=== PATIENT | female | born 1965 | race Caucasian/White ===

== ENCOUNTER 2016-05-15 18:07 | Emergency (ER) | payer OTHER, BC ==
[2016-05-15 18:36] VITALS: BP 129/39; PULSE 77; TEMP 98.2; BMI 35.9
--- NOTE | 2016-05-15 19:01 | PDOC ---
History of Present Illness <Kristopher Harper - Last Filed: 05/15/16 18:59> - History of Present Illness Initial Comments: 05/15/16 19:04 The patient is a 50 year old female with a past medical hx of HTN who presents to the ED complaining of a cough for two months. She reports she has associated chills, night sweats, and chest tightness. The patient reports she saw her PCP a few weeks ago for cold symptoms and was given antibiotics. The patient notes she finished the antibiotics and had no relief of symptoms. The patient notes she does have some relief immediately after a nebulizer treatment. The patient denies SOB, palpitations, fever The patient denies nausea, vomiting, diarrhea Surgical: Appendectomy, cholecystectomy <Nory Singh - Last Filed: 05/15/16 19:08> - General Chief Complaint: Cold Symptoms Stated Complaint: COUGH X 2 MONTHS Time Seen by Provider: 05/15/16 18:58 Past History - Past Medical History HTN: Yes - Surgical History Abdominal Surgery: Yes (HERNIA) Appendectomy: Yes Cholecystectomy: Yes - Immunization History Td Vaccination: Yes Immunization Up to Date: Yes - Psycho/Social/Smoking Cessation Hx Anxiety: No Suicidal Ideation: No Smoking Status: No Smoking History: Never smoked Have you smoked in the past 12 months: No Number of Cigarettes Smoked Daily: 0 Information on smoking cessation initiated: No Hx Alcohol Use: No Drug/Substance Use Hx: No Substance Use Type: None <Kristopher Harper - Last Filed: 05/15/16 18:59> <Nory Singh - Last Filed: 05/15/16 19:08> - Past Medical History Allergies/Adverse Reactions: Allergies Allergy/AdvReac Type Severity Reaction Status Date / Time No Known Allergies Allergy Verified 05/15/16 18:08 Home Medications: Ambulatory Orders Albuterol 0.083% Nebulizer Adilene [Ventolin 0.083% Nebulizer Soln -] 1 amp NEB QID PRN #20 amp 05/15/16 Nebivolol HCl [Bystolic] 5 mg PO Q2D 05/15/16 Review of Systems - Review of Systems Able to Perform ROS?: Yes Comments:: 05/15/16 19:07 GENERAL/CONSTITUTIONAL: +Chills, night sweats No: fever. CARDIOVASCULAR:+Chest tightness No: chest pain, palpitations RESPIRATORY: +Cough No: shortness of breath GASTROINTESTINAL: No: nausea, vomiting, diarrhea <Nory Singh - Last Filed: 05/15/16 19:08> *Physical Exam - Vital Signs Last Vital Signs Temp Pulse Resp BP Pulse Ox 98.2 F 77 16 129/39 99 05/15/16 18:07 05/15/16 18:07 05/15/16 18:07 05/15/16 18:07 05/15/16 18:07 - Physical Exam General Appearance: Yes: Nourished, Appropriately Dressed. No: Apparent Distress HEENT: positive: Normal ENT Inspection Neck: positive: Supple. negative: Tender Respiratory/Chest: positive: Lungs Clear, Normal Breath Sounds. negative: Chest Tender, Respiratory Distress Cardiovascular: positive: Regular Rhythm, Regular Rate Integumentary: positive: Normal Color Neurologic: positive: Fully Oriented, Alert, Normal Mood/Affect, Normal Response , Motor Strength 5/5 <Kristopher Harper - Last Filed: 05/15/16 18:59> - Vital Signs Last Vital Signs Temp Pulse Resp BP Pulse Ox 98.2 F 77 16 129/39 99 05/15/16 18:07 05/15/16 18:07 05/15/16 18:07 05/15/16 18:07 05/15/16 18:07 <Nory Singh - Last Filed: 05/15/16 19:08> ED Treatment Course - RADIOLOGY Radiology Studies Ordered: Category Date Time Status CHEST PA & LAT [RAD] Stat Radiology 05/15/16 18:58 Ordered <Kristopher Harper - Last Filed: 05/15/16 18:59> *DC/Admit/Observation/Transfer <Kristopher Harper - Last Filed: 05/15/16 18:59> - Attestations Scribe Attestion: 05/15/16 19:04 Documentation prepared by Nory Singh, acting as medical technologist generalist for Kristopher Harper MD/DO. <Nory Singh - Last Filed: 05/15/16 19:08> Diagnosis at time of Disposition: Reactive airway disease that is not asthma - Discharge Dispostion Disposition: HOME Condition at time of disposition: Good - Prescriptions Prescriptions: Albuterol 0.083% Nebulizer Adilene [Ventolin 0.083% Nebulizer Soln -] 1 amp NEB QID PRN #20 amp PRN Reason: Cough - Patient Instructions Additional Instructions: CONTINUE NEBULIZER ZYRTEC ONCE A DAY CALL YOUR DOCTOR TOMORROW RETURN TO ER IF WORSENING OR NEW SYMPTOMS
== END 2016-05-15 19:34 | disposition home or self-care (01) ==
LOC: FER 18:07
DX: J98.9 Respiratory disorder, unspecified (principal); I10 Essential (primary) hypertension
CPT/HCPCS: 71020-TC; 99282-25

== ENCOUNTER 2016-05-27 21:54 | Emergency (ER) | payer OTHER, BC ==
[2016-05-27 22:09] VITALS: BP 140/74; PULSE 70; TEMP 97.4; BMI 37.3
--- NOTE | 2016-05-27 22:32 | PDOC ---
History of Present Illness - General Chief Complaint: Pain, Acute Stated Complaint: PAIN AND SWELLING TO LEFT KNEE AND THIGH Time Seen by Provider: 05/27/16 22:08 History Source: Patient, Family - History of Present Illness Timing/Duration: 1 week Severity: moderate Associated Symptoms: denies: chest pain, diaphoresis, fever/chills, rash, shortness of breath Past History - Past Medical History Allergies/Adverse Reactions: Allergies Allergy/AdvReac Type Severity Reaction Status Date / Time No Known Allergies Allergy Verified 05/15/16 18:08 Home Medications: Ambulatory Orders Nebivolol HCl [Bystolic] 5 mg PO Q2D 05/15/16 HTN: Yes - Surgical History Abdominal Surgery: Yes (HERNIA) Appendectomy: Yes Cholecystectomy: Yes - Immunization History Td Vaccination: Yes Immunization Up to Date: Yes - Psycho/Social/Smoking Cessation Hx Anxiety: No Suicidal Ideation: No Smoking Status: No Smoking History: Never smoked Have you smoked in the past 12 months: No Number of Cigarettes Smoked Daily: 0 Hx Alcohol Use: No Drug/Substance Use Hx: No Substance Use Type: None Review of Systems - Review of Systems All Other Systems: Reviewed and Negative *Physical Exam - Physical Exam General Appearance: Yes: Nourished, Appropriately Dressed HEENT: positive: Normal Voice Neck: positive: Trachea midline Respiratory/Chest: positive: Lungs Clear Cardiovascular: positive: Regular Rhythm Gastrointestinal/Abdominal: positive: Normal Bowel Sounds Lymphatic: negative: Adenopathy Musculoskeletal: positive: Normal Inspection. negative: Decreased Range of Motion, Muscle Spasm Extremity: positive: Normal Capillary Refill, Normal Range of Motion, Other. negative: Swelling, Calf Tenderness Integumentary: positive: Normal Color Neurologic: positive: Fully Oriented Medical Decision Making - Medical Decision Making 05/28/16 03:18 ? dvt no apparent risk factors (travel to [place] didnt happen til after onset of symptoms) r/o'd with duplex analgesia for nonspecific ms pain *DC/Admit/Observation/Transfer Diagnosis at time of Disposition: Leg strain - Discharge Dispostion Disposition: HOME Condition at time of disposition: Stable - Patient Instructions Printed Discharge Instructions: DI for Leg Pain
== END 2016-05-27 23:15 | disposition home or self-care (01) ==
LOC: FER 21:54
DX: S86.912A Strain of unspecified muscle(s) and tendon(s) at lower leg level, left leg, initial encounter (principal); X58.XXXA Exposure to other specified factors, initial encounter; Y93.9 Activity, unspecified; Y92.9 Unspecified place or not applicable; I10 Essential (primary) hypertension
CPT/HCPCS: 93971-TC; 99281-25

== ENCOUNTER 2016-09-05 17:29 | Observation (INO) | payer OTHER, BC ==
[2016-09-05] MEDS ORDERED: SODIUM CHLORIDE 0.9% 1000 ML INFUS.BAG IV ONE (17:43)
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
[2016-09-05 18:25] LABS: BASOPHIL 0.5 % (0-2.0); MCH 31.3 pg (25.7-33.7); MCHC 33.5 g/dl (32.0-36.0); MEAN CELL VOLUME 93.3 fl (80-96); MEAN PLT VOLUME 10.3 fl (7.5-11.1); NEUTROPHILS 43.8 % (42.8-82.8); PLATELET COUNT 152 K/MM3 (134-434); RDW 12.9 % (11.6-15.6); WHITE BLOOD COUNT 5.7 K/mm3 (4.0-10.0)
[2016-09-05 18:27] LABS: URINE APPEARANCE CLEAR; URINE BILIRUBIN NEGATIVE (NEGATIVE); URINE BLOOD NEGATIVE (NEGATIVE); URINE COLOR STRAW; URINE GLUCOSE (UA) NEGATIVE (NEGATIVE); URINE KETONE NEGATIVE (NEGATIVE); URINE LEUK ESTERASE NEGATIVE (NEGATIVE); URINE NITRITE NEGATIVE (NEGATIVE); URINE PROTEIN NEGATIVE (NEGATIVE); URINE UROBILINOGEN NEGATIVE E.U./dl (0.2-1.0)
[2016-09-05 18:59] LABS: ALK PHOS 88 U/L (45-117); ANION GAP 11 (8-16); BILIRUBIN,TOTAL 0.4 mg/dL (0.2-1.0); CALCIUM 9.5 mg/dL (8.5-10.1); CO2 24 mmol/L (21-32); COCKROFT - GAULT 0; CREATININE 0.8 mg/dL (0.55-1.02); GLUCOSE,RANDOM 98 mg/dL (74-106); SGOT/AST 27 U/L (15-37); SGPT/ALT 48 U/L (12-78); TOT PROT 7.3 g/dl (6.4-8.2)
[2016-09-05 19:36] VITALS: BMI 37.3
[2016-09-05 19:49] LABS: TROPONIN I < 0.02 ng/ml (0.00-0.05)
--- NOTE | 2016-09-05 20:31 | HP ---
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 Called her daughter , and initially lied on the floor but when tried to sit upback on the chair had a syncopal episode with LOC and respiratory arrest. Imroved on arrival to [facility]. 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 Meniere"s disease. Menopause. Colon polyps. 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 - Smoking History Smoking history: Never smoked Have you smoked in the past 12 months: No Aproximately how many cigarettes per day: 0 - Alcohol/Substance Use Hx Alcohol Use: No Home Medications - Allergies Allergies/Adverse Reactions: Allergies Allergy/AdvReac Type Severity Reaction Status Date / Time No Known Allergies Allergy Verified 09/05/16 18:17 - Home Medications Home Medications: Ambulatory Orders Nebivolol HCl [Bystolic] 10 mg PO DAILY 05/15/16 Cholecalciferol (Vitamin D3) [Vitamin D3 -] 800 unit PO DAILY 09/05/16 Family Disease History - Family Disease History Family History: Unremarkable Review of Systems - Review of Systems Constitutional: denies: Lethargy, Loss of Appetite, Malaise, Unintentional Wgt. Loss, Weakness Eyes: denies: Double Vision, Photophobia HENT: reports: Other (Tongue difficult to move). denies: Gingival Bleeding, Hearing Loss, Mouth Swelling, Nasal Congestion, Throat Pain Cardiovascular: reports: Palpitations. denies: Chest Pain, Shortness of Breath Respiratory: denies: Cough, Exercise Intolerance, Hemoptysis, SOB, SOB on Exertion, Wheezing Gastrointestinal: reports: Nausea. denies: Abdominal Pain, Constipation, Diarrhea, Vomiting, Vomiting Blood Genitourinary: denies: Discharge, Dysuria, Flank Pain Breasts: reports: No Symptoms Reported Musculoskeletal: reports: Back Pain. denies: Joint Swelling, Muscle Pain, Muscle Cramps Integumentary: reports: No Symptoms Neurological: reports: Change in LOC, Change in Speech, Headache, Weakness (LUE/ LLE) Psychiatric: reports: No Symptoms Physical Examination Vital Signs: Vital Signs Temperature 98.9 F 09/05/16 17:30 Pulse Rate 66 09/05/16 17:30 Respiratory Rate 16 09/05/16 17:30 Blood Pressure 122/82 09/05/16 17:30 O2 Sat by Pulse Oximetry (%) 97 09/05/16 17:30 Constitutional: Yes: Anxious, Mild Distress, Obese. No: Pallor, Poor Hygeine Eyes: Yes: Conjunctiva Clear, EOM Intact HENT: Yes: Atraumatic, Normocephalic. No: Drooling, Epistaxis Neck: Yes: Supple, Trachea Midline. No: Decreased ROM, Lymphadenopathy Cardiovascular: Yes: Regular Rate and Rhythm, S1, S2. No: Bradycardia, Tachycardia Respiratory: Yes: Regular, CTA Bilaterally. No: Accessory Muscle Use, SOB, SOB on Exertion Gastrointestinal: Yes: Normal Bowel Sounds, Soft. No: Ascites, Palpable Mass, Tenderness ...Rectal Exam: Yes: Deferred Renal/: No: Anuria, Bladder Distention, CVA Tenderness - Left, CVA Tenderness - Right Extremities: No: Amputation, Calf Tenderness, Cold, Cool, Cyanosis Edema: No Peripheral Pulses WNL: Yes Integumentary: Yes: WNL Neurological: Yes: Alert, Oriented, Weakness (LUE, LLE?). No: Aphasia, Dysarthria, Numbness, Tremors Psychiatric: Yes: WNL Labs: CBC, BMP 09/05/16 18:00 09/05/16 18:00 Laboratory Results - last 24 hr 09/05/16 09/05/16 09/05/16 18:00 18:00 18:00 WBC 5.7 RBC 4.22 Hgb 13.2 Hct 39.4 MCV 93.3 MCHC 33.5 RDW 12.9 Plt Count 152 MPV 10.3 Neutrophils % 43.8 Lymphocytes % 46.2 H Monocytes % 7.5 Eosinophils % 2.0 Basophils % 0.5 Sodium 141 Potassium 3.9 Chloride 106 Carbon Dioxide 24 Anion Gap 11 BUN 15 Creatinine 0.8 Creat Clearance w eGFR > 60 Random Glucose 98 Calcium 9.5 Total Bilirubin 0.4 AST 27 ALT 48 Alkaline Phosphatase 88 Creatine Kinase 139 Troponin I < 0.02 Total Protein 7.3 Albumin 4.0 Urine Color Urine Appearance Urine pH Urine Protein Urine Glucose (UA) Urine Ketones Urine Blood Urine Nitrite Urine Bilirubin Urine Urobilinogen Ur Leukocyte Esterase 09/05/16 18:00 WBC RBC Hgb Hct MCV MCHC RDW Plt Count MPV Neutrophils % Lymphocytes % Monocytes % Eosinophils % Basophils % Sodium Potassium Chloride Carbon Dioxide Anion Gap BUN Creatinine Creat Clearance w eGFR Random Glucose Calcium Total Bilirubin AST ALT Alkaline Phosphatase Creatine Kinase Troponin I Total Protein Albumin Urine Color Straw Urine Appearance Clear Urine pH 6.0 Urine Protein Negative Urine Glucose (UA) Negative Urine Ketones Negative Urine Blood Negative Urine Nitrite Negative Urine Bilirubin Negative Urine Urobilinogen Negative Ur Leukocyte Esterase Negative Imaging - Results Cat Scan: Report Reviewed EKG: Image Reviewed Problem List - Problems (1) Syncope Assessment/Plan: Telemetry observation. R/o vaso-vagal vs autonomic du=isfunction, cardiac decelerating syncope. D-dimers r/o DVT/PE-if positive CTA Code(s): R55 - SYNCOPE AND COLLAPSE Qualifiers: Syncope type: unspecified Qualified Code(s): R55 - Syncope and collapse (2) CVA (cerebral vascular accident) Assessment/Plan: possible CVA 2 weeks ago in [facility]- MRI/MRI/neuro f/u. Code(s): I63.9 - CEREBRAL INFARCTION, UNSPECIFIED Qualifiers: Precerebral and cerebral artery: unspecified precerebral artery
[2016-09-06 07:27] LABS: BASOPHIL 0.5 % (0-2.0); EOSINOPHIL 2.2 % (0-4.5); MCH 31.9 pg (25.7-33.7); MCHC 34.2 g/dl (32.0-36.0); MEAN CELL VOLUME 93.4 fl (80-96); MEAN PLT VOLUME 10.2 fl (7.5-11.1); NEUTROPHILS 47.4 % (42.8-82.8); PLATELET COUNT 152 K/MM3 (134-434); WHITE BLOOD COUNT 5.6 K/mm3 (4.0-10.0)
[2016-09-06 08:04] LABS: ALBUMIN 3.9 g/dl (3.4-5.0); ALK PHOS 64 U/L (45-117); ANION GAP 8 (8-16); BILIRUBIN,TOTAL 0.8 mg/dL (0.2-1.0); CALCIUM 9.1 mg/dL (8.5-10.1); CO2 27 mmol/L (21-32); CREATININE 0.8 mg/dL (0.55-1.02); GLUCOSE,RANDOM 84 mg/dL (74-106); SGOT/AST 33 U/L (15-37); SGPT/ALT 46 U/L (12-78)
[2016-09-06] MEDS ORDERED: METOCLOPRAMIDE HCL INJECTION 10 MG/2 ML VIAL IVPB PRN (08:27)
[2016-09-06] MEDS ORDERED: KETOROLAC TROMETHAMINE 60 MG/2 ML VIAL IVPUSH ONE (08:27)
--- NOTE | 2016-09-06 08:38 | PN ---
Progress Note (short form) - Note Progress Note: C/o severe HARDING and nausea resembling her migraines. Daughter at the bedside. Pt is awake, alert, NAD Vital Signs - 24 hr 09/05/16 09/06/16 09/06/16 17:30 06:00 06:46 Temperature 98.9 F 98.2 F Pulse Rate 66 Pulse Rate [ 57 L Apical] Respiratory 16 16 Rate Blood Pressure 122/82 Blood Pressure 107/66 [Right] O2 Sat by Pulse 97 97 98 Oximetry (%) Neck-no JVD, No bruits Lungs are Clear Heart S1S2 regular Abdomen soft, NT Ext-no CCE No dysarthria, no aphasia 4/5 UE Gait not tested D-Dimers<200 MRI/MRA-brain/neck-negative Dr. Read -examining the pt Laboratory Results - last 24 hr 09/05/16 09/05/16 09/05/16 18:00 18:00 18:00 WBC 5.7 RBC 4.22 Hgb 13.2 Hct 39.4 MCV 93.3 MCHC 33.5 RDW 12.9 Plt Count 152 MPV 10.3 Neutrophils % 43.8 Lymphocytes % 46.2 H Monocytes % 7.5 Eosinophils % 2.0 Basophils % 0.5 D-Dimer Sodium 141 Potassium 3.9 Chloride 106 Carbon Dioxide 24 Anion Gap 11 BUN 15 Creatinine 0.8 Creat Clearance w eGFR > 60 Random Glucose 98 Calcium 9.5 Total Bilirubin 0.4 AST 27 ALT 48 Alkaline Phosphatase 88 Creatine Kinase 139 Troponin I < 0.02 Total Protein 7.3 Albumin 4.0 Urine Color Urine Appearance Urine pH Ur Specific Rembert Urine Protein Urine Glucose (UA) Urine Ketones Urine Blood Urine Nitrite Urine Bilirubin Urine Urobilinogen Ur Leukocyte Esterase 09/05/16 09/05/16 09/06/16 18:00 20:25 06:10 WBC 5.6 RBC 4.20 Hgb 13.4 Hct 39.2 MCV 93.4 MCHC 34.2 RDW 13.0 Plt Count 152 MPV 10.2 Neutrophils % 47.4 Lymphocytes % 43.1 H Monocytes % 6.8 Eosinophils % 2.2 Basophils % 0.5 D-Dimer < 200 Sodium Potassium Chloride Carbon Dioxide Anion Gap BUN Creatinine Creat Clearance w eGFR Random Glucose Calcium Total Bilirubin AST ALT Alkaline Phosphatase Creatine Kinase Troponin I Total Protein Albumin Urine Color Straw Urine Appearance Clear Urine pH 6.0 Ur Specific Rembert 1.015 Urine Protein Negative Urine Glucose (UA) Negative Urine Ketones Negative Urine Blood Negative Urine Nitrite Negative Urine Bilirubin Negative Urine Urobilinogen Negative Ur Leukocyte Esterase Negative 09/06/16 06:10 WBC RBC Hgb Hct MCV MCHC RDW Plt Count MPV Neutrophils % Lymphocytes % Monocytes % Eosinophils % Basophils % D-Dimer Sodium 140 Potassium 4.2 Chloride 105 Carbon Dioxide 27 Anion Gap 8 BUN 12 Creatinine 0.8 Creat Clearance w eGFR > 60 Random Glucose 84 Calcium 9.1 Total Bilirubin 0.8 D AST 33 D ALT 46 Alkaline Phosphatase 64 D Creatine Kinase Troponin I Total Protein 7.0 Albumin 3.9 Urine Color Urine Appearance Urine pH Ur Specific Rembert Urine Protein Urine Glucose (UA) Urine Ketones Urine Blood Urine Nitrite Urine Bilirubin Urine Urobilinogen Ur Leukocyte Esterase Current Active Problems Problem Status Diagnosed CVA (cerebral vascular accident) Acute Syncope Acute No evidence of CVA Acute Migraine-Will administer Toradol, Reglan. Naprosin OTC as outpt D/C Bystolic-? contributing to syncope. No arrhythmias. Will follow as outpt Also neuro f/u as out pt D/C home when cleared by neurology. Problem List - Problems (1) Syncope Code(s): R55 - SYNCOPE AND COLLAPSE Qualifiers: Syncope type: unspecified Qualified Code(s): R55 - Syncope and collapse (2) CVA (cerebral vascular accident) Code(s): I63.9 - CEREBRAL INFARCTION, UNSPECIFIED Qualifiers: Precerebral and cerebral artery: unspecified precerebral artery
--- NOTE | 2016-09-06 08:44 | DS ---
Physical Examination Vital Signs: Vital Signs Temperature 98.2 F 09/06/16 06:46 Pulse Rate 57 L 09/06/16 06:46 Respiratory Rate 16 09/06/16 06:46 Blood Pressure 107/66 09/06/16 06:46 O2 Sat by Pulse Oximetry (%) 98 09/06/16 06:46 Constitutional: Yes: Anxious Eyes: Yes: Conjunctiva Clear, EOM Intact HENT: Yes: Atraumatic, Normocephalic Neck: Yes: Supple, Trachea Midline Cardiovascular: Yes: Regular Rate and Rhythm Respiratory: Yes: Regular Gastrointestinal: Yes: Normal Bowel Sounds ...Rectal Exam: Yes: Deferred Renal/: No: Anuria, Bladder Distention, CVA Tenderness - Left, CVA Tenderness - Right Musculoskeletal: No: Back Pain Extremities: No: Amputation, Calf Tenderness, Cyanosis Edema: No Neurological: Yes: Alert, Oriented. No: Aphasia, Ataxia, Confusion, Numbness, Seizure, Tremors, Weakness ...Motor Strength: WNL Psychiatric: Yes: WNL Labs: CBC, BMP 09/06/16 06:10 09/06/16 06:10 Discharge Summary Reason For Visit: [id number],migraine Current Active Problems CVA (cerebral vascular accident) (Acute) Syncope (Acute) - Instructions Referrals: Stefan Agarwal MD [Primary Care Provider] - Disposition: HOME - Home Medications Comprehensive Discharge Medication List: Ambulatory Orders Nebivolol HCl [Bystolic] 10 mg PO DAILY 05/15/16 Cholecalciferol (Vitamin D3) [Vitamin D -] 800 unit PO DAILY 09/05/16 Naproxen [Naprosyn -] 500 mg PO BID PRN #60 tablet 09/06/16
--- NOTE | 2016-09-06 08:56 | CON.NEURO ---
Consult Consult Specialty:: Neurology - History of Present Illness History of Present Illness: 50YR F, HX migraines, menieeres, presenting for recurrent syncope. APX 4 weeks ago and event while at daughters house, felt weak and passed out, noted to pale and daughter did not notice any shaking, BB incontinence--she refused to go to ER at that time. APX 2 weeks, epsidoe opf heavy tongue while in [facility], does not recall major HARDING at that time, does it admit was exhausted , father sick and no sleep during that time frame . 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 No HARDING at that time. ? feels heaviness left arm. no other focal C/O. MRI MRA HEAD and NECK done (-). 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: Migraine, Vertigo - Alcohol/Substance Use Hx Alcohol Use: No - Smoking History Smoking history: Never smoked Have you smoked in the past 12 months: No Aproximately how many cigarettes per day: 0 Home Medications - Allergies Allergies/Adverse Reactions: Allergies Allergy/AdvReac Type Severity Reaction Status Date / Time No Known Allergies Allergy Verified 09/05/16 18:17 - Home Medications Home Medications: Ambulatory Orders Nebivolol HCl [Bystolic] 10 mg PO DAILY 05/15/16 Cholecalciferol (Vitamin D3) [Vitamin D -] 800 unit PO DAILY 09/05/16 Naproxen [Naprosyn -] 500 mg PO BID PRN #60 tablet 09/06/16 Physical Exam-Neuro Vital Signs: Vital Signs Temperature 98.2 F 09/06/16 06:46 Pulse Rate 57 L 09/06/16 06:46 Respiratory Rate 16 09/06/16 06:46 Blood Pressure 107/66 09/06/16 06:46 O2 Sat by Pulse Oximetry (%) 98 09/06/16 06:46 Constitutional: Yes: Well Nourished Neck: Yes: WNL Cardiovascular: Yes: Regular Rate and Rhythm Respiratory: Yes: Regular Gastrointestinal: Yes: Normal Bowel Sounds Labs: CBC, BMP 09/06/16 06:10 09/06/16 06:10 - Neuro Exam Level Of Consciousness: Yes: Alert, Oriented to Person Eyes: Yes: PERRLA Speech: WNL Dominant Hand: Right Cranial Nerves II-XII Intact: Yes Gag: Present DTR's: 2+ Left Bicep, 2+ Right Bicep, 2+ Left Tricep, 2+ Right Tricep, 2+ Left Brachioradialis, 2+ Right Brachioradialis, 2+ Left Achilles, 2+ Right Achilles Babinski: Absent Response to light touch: Normal Response to pain prick: Normal Movement Disorders: Other (no ataxia ) Coordination: Normal: Finger to Nose (NL ) Motor Strength: 5/5: Right Arm, Left Arm, Left Leg, Right Leg Gait: Deferred NIH Stroke Scale - Total Score NIH Stroke Scale Score: 0 Imaging - Results MRI: Report Reviewed, Image Reviewed Problem List - Problems (1) Syncope Code(s): R55 - SYNCOPE AND COLLAPSE Qualifiers: Syncope type: unspecified Qualified Code(s): R55 - Syncope and collapse (2) Migraine Code(s): G43.909 - MIGRAINE, UNSP, NOT INTRACTABLE, WITHOUT STATUS MIGRAINOSUS Assessment/Plan 50YR F, HX migraines, menieeres, presenting for recurrent syncope. APX 4 weeks ago and event while at [facility] house, felt weak and passed out, noted to pale and daughter did not notice any shaking, BB incontinence--she refused to go to ER at that time. APX 2 weeks, epsidoe opf heavy tongue while in [facility], does not recall major HARDING at that time, does it admit was exhausted , father sick and no sleep during that time frame . 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 No HARDING at that time. ? feels heaviness left arm. no other focal C/O. MRI MRA HEAD and NECK done (-). Suspect vasovagal event, BP runs low , no evidence of vertebrobasilar insufficiency , CVA etc. doubt seizures. consider TILT as outpt, agree with holding BYSTOLIC. card FERRER for holter , echo as needed. can give TORADOL for migraine, and use imitrex as outpt 50MG PRN HARDING, max 3 / week. can FU as outpt, neuro cleared for DC Dr Read [id number]
[2016-09-06] MEDS ORDERED: KETOROLAC TROMETHAMINE 30 MG/1 ML VIAL IVPUSH ONE (09:00)
[2016-09-06] MEDS ORDERED: ONDANSETRON 4 MG/2 ML VIAL IVPB ONE (09:00)
[2016-09-06] MEDS ORDERED: SUMAtriptan SUCCINATE 50 MG TABLET PO ONE (09:15)
[2016-09-06 09:45] VITALS: BP 130/70; PULSE 67; TEMP 97.9
[2016-09-06] MEDS ORDERED: CHOLECALCIFEROL (VITAMIN D3) 400 UNIT TABLET (FP) PO SCH (10:00)
[2016-09-06] MEDS ORDERED: NEBIVOLOL 10 MG TABLET (FP) PO SCH (10:00)
--- NOTE | 2016-09-06 12:32 | EKG ---
Test Reason : Blood Pressure : / mmHG Vent. Rate : 063 BPM Atrial Rate : 063 BPM P-R Int : 180 ms QRS Dur : 088 ms QT Int : 438 ms P-R-T Axes : 055 063 053 degrees QTc Int : 448 ms NORMAL SINUS RHYTHM NORMAL ECG WHEN COMPARED WITH ECG OF 21-APR-2010 10:40, NO SIGNIFICANT CHANGE WAS FOUND Confirmed by MARY KAY FLORES MD ([id number]) on 09/06/2016 12:32:28 PM Referred By: Confirmed By:MARY KAY FLORES MD
== END 2016-09-06 11:25 | disposition home or self-care (01) ==
LOC: JER 17:29 → JERBED 19:25
PROVIDERS: ADMIT Internal Medicine; ATTEND Internal Medicine
PROC: 3E0333Z Introduction of Anti-inflammatory into Peripheral Vein, Percutaneous Approach (ICD-10-PCS; principal; 2016-09-05)
PROC: 3E033GC Introduction of Other Therapeutic Substance into Peripheral Vein, Percutaneous Approach (ICD-10-PCS; 2016-09-05)
PROC: 3E0337Z Introduction of Electrolytic and Water Balance Substance into Peripheral Vein, Percutaneous Approach (ICD-10-PCS; 2016-09-05)
DX: R55 Syncope and collapse (principal); I63.9 Cerebral infarction, unspecified; G43.909 Migraine, unspecified, not intractable, without status migrainosus
CPT/HCPCS: 36415; 70450-TC; 70545-TC; 70548-TC; 70551-TC; 71010-TC; 80053; 81003; 82550; 84484; 85025; 85379; 93005; 93010; 99285-25; A9576; G0378

== ENCOUNTER 2017-05-10 08:29 | Emergency (ER) | payer OTHER, BC ==
[2017-05-10 08:54] VITALS: TEMP 98.1; BMI 37.1
[2017-05-10] MEDS ORDERED: methylPREDNISolone NA SUCC 40 MG/1 ML VIAL IVPUSH ONE (09:07)
[2017-05-10] MEDS ORDERED: FAMOTIDINE IV 20 MG/12 ML VIAL IVPUSH ONE (09:07)
--- NOTE | 2017-05-10 09:07 | PDOC ---
History of Present Illness - General History Source: Patient - History of Present Illness Timing/Duration: other (last night) Associated Symptoms: reports: rash <Ana Han - Last Filed: 05/10/17 11:05> <Suzy Castañeda - Last Filed: 05/10/17 12:09> - General Chief Complaint: Allergic Reaction Stated Complaint: Allergic Reaction Time Seen by Provider: 05/10/17 08:51 Past History - Past Medical History COPD: No HTN: Yes Psychiatric Problems: (possible anxiety) - Surgical History Abdominal Surgery: Yes (HERNIA) Appendectomy: Yes Cholecystectomy: Yes - Immunization History Td Vaccination: Yes Immunization Up to Date: Yes - Suicide/Smoking/Psychosocial Hx Smoking Status: No Smoking History: Never smoked Have you smoked in the past 12 months: No Number of Cigarettes Smoked Daily: 0 Information on smoking cessation initiated: No Hx Alcohol Use: No Drug/Substance Use Hx: No Substance Use Type: None <Ana Han - Last Filed: 05/10/17 11:05> <Suzy Castañeda - Last Filed: 05/10/17 12:09> - Past Medical History Allergies/Adverse Reactions: Allergies Allergy/AdvReac Type Severity Reaction Status Date / Time No Known Allergies Allergy Verified 05/10/17 08:51 Home Medications: Ambulatory Orders EPINEPHrine (EPI-PEN 0.3MG) [Epipen 0.3MG -] 0.3 mg IM ASDIR #2 pens 05/10/17 Famotidine [Pepcid] 20 mg PO DAILY #6 tablet 05/10/17 Prednisone [Deltasone] 40 mg PO DAILY #8 tablet 05/10/17 Review of Systems - Review of Systems Constitutional: No: Chills, Fever Respiratory: Yes: Shortness of Breath. No: Cough, Stridor, Wheezing Cardiac (ROS): No: Chest Pain Integumentary: Yes: Pruritus, Rash <Ana Han - Last Filed: 05/10/17 11:05> *Physical Exam - Vital Signs Last Vital Signs Temp Pulse Resp BP Pulse Ox 98.1 F 71 18 134/72 98 05/10/17 08:44 05/10/17 08:44 05/10/17 08:44 05/10/17 08:44 05/10/17 08:44 - Physical Exam General Appearance: Yes: Appropriately Dressed. No: Apparent Distress HEENT: positive: Normal Voice, Other (diffuse erythema to face, no lip/tongue swelling, no stridor). negative: Muffled/Hoarse voice Neck: positive: Supple Respiratory/Chest: positive: Normal Breath Sounds. negative: Respiratory Distress Cardiovascular: positive: Regular Rate, S1, S2 Integumentary: positive: Dry, Warm, Rash Neurologic: positive: Fully Oriented, Alert, Normal Mood/Affect <Ana Han - Last Filed: 05/10/17 11:05> - Vital Signs Last Vital Signs Temp Pulse Resp BP Pulse Ox 98.1 F 78 19 134/78 98 05/10/17 10:00 05/10/17 10:00 05/10/17 10:00 05/10/17 10:00 05/10/17 10:00 <Suzy Castañeda - Last Filed: 05/10/17 12:09> ED Treatment Course - Medications Given in the ED: ED Medications Discontinued Medications Generic Name Dose Route Start Last Admin Trade Name Venturaq PRN Reason Stop Dose Admin Famotidine 20 mg in 12 mls @ 144 mls/hr 05/10/17 09:07 05/10/17 09:22 Pepcid 20 Mg/12 Ml Push IVPUSH 05/10/17 09:11 144 mls/hr ONCE ONE Administration Methylprednisolone Sodium Succinate 60 mg 05/10/17 09:07 05/10/17 09:23 Solu-Medrol - IVPUSH 05/10/17 09:08 60 mg ONCE ONE Administration <Suzy Castañeda - Last Filed: 05/10/17 12:09> Medical Decision Making - Medical Decision Making 05/10/17 09:04 51-year-old female, denies any past medical history and not on any medication, here with facial itching and swelling since last night. States this a.m., felt like she could not breathe and that her tongue was swollen. Called her daughter who told her to take 50 mg of Benadryl which patient took and now feels better. No sob at this time and no drooling or voice change. Patient denies any known drug or food allergies and denies any obvious inciting factors. No prior episode and no history of anaphylaxis. See exam Allergic rxn w/ possible angioedema Unknown inciting factor as no known drug or food allergies and not on an PAVAN or ARB Stable w/ diffuse facial erythema with clear oropharynx and no stridor with clear chest/lungs -Took 50mg Benadryl this am, will give prednisone/pepcid and observe in ED 05/10/17 09:10 05/10/17 11:05 On reassessment, facial rash has completely resolved and patient asymptomatic at this time. Will discharge with prednisone, Pepcid and EpiPen. Patient already has benadryl at home. Reasons to return discussed with patient. Dr. Castañeda aware of disposition <Ana Han - Last Filed: 05/10/17 11:05> *DC/Admit/Observation/Transfer <Ana Han - Last Filed: 05/10/17 11:05> - Attestations Physician Attestion: I reviewed the case with the mid-level practitioner and agree with the mid- level practitioner's assessment, diagnosis and disposition. <Suzy Castañeda - Last Filed: 05/10/17 12:09> Diagnosis at time of Disposition: Allergic reaction Qualifiers: Encounter type: initial encounter Qualified Code(s): T78.40XA - Allergy, unspecified, initial encounter - Discharge Dispostion Disposition: HOME Condition at time of disposition: Improved - Prescriptions Prescriptions: EPINEPHrine (EPI-PEN 0.3MG) [Epipen 0.3MG -] 0.3 mg IM ASDIR #2 pens Famotidine [Pepcid] 20 mg PO DAILY #6 tablet Prednisone [Deltasone] 40 mg PO DAILY #8 tablet - Referrals Referrals: Stefan Agarwal MD [Primary Care Provider] - - Patient Instructions Printed Discharge Instructions: DI for General Allergic Reactions Additional Instructions: You have an allergic reaction. The cause is unclear at this time. Continue Benadryl every 6 hours as needed until symptoms resolve. Take prednisone daily for the next several days starting tomorrow and also Pepcid. If you become short of breath or have a sensation of your throat closing up, use EpiPen immediately as directed and call 911. Follow-up with your PMD - Post Discharge Activity
[2017-05-10] MEDS ORDERED: methylPREDNISolone NA SUCC 125 MG/2 ML VIAL ONE (09:11)
[2017-05-10] MEDS ORDERED: FAMOTIDINE 20 MG/50 ML IVPB 20 MG/50 ML MG IVPB ONE (09:11)
[2017-05-10 11:50] VITALS: BP 134/78; PULSE 78
--- NOTE | 2017-05-11 12:15 | EKG ---
Test Reason : Blood Pressure : / mmHG Vent. Rate : 067 BPM Atrial Rate : 067 BPM P-R Int : 174 ms QRS Dur : 098 ms QT Int : 442 ms P-R-T Axes : 019 029 024 degrees QTc Int : 467 ms NORMAL SINUS RHYTHM NORMAL ECG WHEN COMPARED WITH ECG OF 05-SEP-2016 18:09, NO SIGNIFICANT CHANGE WAS FOUND Confirmed by MARY KAY FLORES MD ([id number]) on 05/11/2017 12:15:27 PM Referred By: Confirmed By:MARY KAY FLORES MD
== END 2017-05-10 11:30 | disposition home or self-care (01) ==
LOC: JER 08:29
DX: T78.40XA Allergy, unspecified, initial encounter (principal)
CPT/HCPCS: 93005; 93010; 99283-25

== ENCOUNTER 2018-03-27 21:13 | Emergency (ER) | payer OTHER, BC ==
[2018-03-27 21:17] VITALS: BP 130/75; PULSE 83; TEMP 97.5; BMI 38.2
--- NOTE | 2018-03-27 22:27 | PDOC ---
History of Present Illness - General Chief Complaint: Pain, Acute Stated Complaint: RIGHT KNEE PAIN Time Seen by Provider: 03/27/18 21:59 History Source: Patient, Family Exam Limitations: Language Barrier - History of Present Illness Initial Comments: 03/27/18 22:19 Pt. is a 52 y.o. Romansh-speaking F, with PMHx. of subclinical Fitz's Thyroiditis, HTN( not on meds), Meniere's Disease, migraines, colonic polyps and RA presents to the ED with R. Knee "tracking" pain for 3 days. Pt. states that she was having usual arthritic pain for a few days before , (left knee is usually worse than the right and usually gets much more swollen than how the right knee is right now) when she tweaked her knee which using a Hula- hoop, Pt. later went to a [employer] and was dancing all night. Pt. states that when she went home she was unable to sleep because of excruciating pain of the medial aspect of the right knee. Pt. feels the pain when her knee is flexed and when her legs are in the valgus position. Pt.'s daughter who helped translate is a Physical Therapist. Pt. denies taking any medication for the pain and has rested elevated and used a knee brace for the pain and swelling. Pt. states her right knee is swollen but not nearly as bad as her left knee during an acute flare up of RA. Pt. denies nausea, vomiting, dizziness , chest pain, shortness of breath, fever or chills at this time. Knee X-Ray and Ibuprofen ordered for evaluation for fractures and for pain management. MRI is the next modality of choice for evaluation of soft tissue ( meniscus and ligament) damage. MRI however may be done as an outpatient workup. 03/27/18 22:51 Timing/Duration: constant Severity: moderate Modifying Factors: improves with: cold therapy, eating (improves ), immobilization, movement (worsens ), rest (improves ) Associated Symptoms: reports: weakness. denies: chest pain, cough, fever/chills , headaches, nausea/vomiting, shortness of breath Aspirin Received prior to arrival: Yes: no aspirin today Beta Ishmael Contraindications(Core Measure): Yes: Not Prescribed Past History - Past Medical History Allergies/Adverse Reactions: Allergies Allergy/AdvReac Type Severity Reaction Status Date / Time No Known Allergies Allergy Verified 03/27/18 21:17 Home Medications: Ambulatory Orders EPINEPHrine (EPI-PEN 0.3MG) [Epipen 0.3MG -] 0.3 mg IM ASDIR #2 pens 05/10/17 Famotidine [Pepcid] 20 mg PO DAILY #6 tablet 05/10/17 Prednisone [Deltasone] 40 mg PO DAILY #8 tablet 05/10/17 Cane 1 each MC ASDIR #1 each 03/27/18 Ibuprofen 800 mg PO TID PRN #21 tablet 03/27/18 COPD: No HTN: Yes Psychiatric Problems: (possible anxiety) Thyroid Disease: Yes (subclinical Fitz's Thyroiditis ) - Surgical History Abdominal Surgery: Yes (HERNIA) Appendectomy: Yes Cholecystectomy: Yes - Immunization History Td Vaccination: Yes Immunization Up to Date: Yes - Suicide/Smoking/Psychosocial Hx Smoking Status: No Smoking History: Never smoked Have you smoked in the past 12 months: No Number of Cigarettes Smoked Daily: 0 Hx Alcohol Use: No Drug/Substance Use Hx: No Substance Use Type: None Review of Systems - Review of Systems Able to Perform ROS?: Yes Is the patient limited Zambian proficient: Yes Constitutional: Yes: Weakness. No: Chills, Fever, Loss of Appetite HEENTM: No: Blurred Vision, Recent change in vision Respiratory: No: Cough, Shortness of Breath, SOB with Exertion, SOB at Rest, Wheezing, Productive cough Cardiac (ROS): No: Chest Pain, Edema, Lightheadedness, Palpitations, Chest Tightness ABD/GI: No: Symptoms Reported, Constipated, Diarrhea, Poor Appetite, Poor Fluid Intake, Rectal Bleeding, Vomiting : No: Symptoms Reported Musculoskeletal: Yes: Joint Pain, Joint Swelling Integumentary: No: Bruising, Change in Color, Dryness, Erythema Neurological: Yes: Weakness, Unsteady Gait. No: Headache, Numbness, Paresthesia , Tingling, Dizziness Endocrine: No: Symptoms Reported Hematologic/Lymphatic: No: Symptoms Reported *Physical Exam - Vital Signs Last Vital Signs Temp Pulse Resp BP Pulse Ox 97.5 F L 83 18 130/75 97 03/27/18 21:15 03/27/18 21:15 03/27/18 21:15 03/27/18 21:15 03/27/18 21:15 - Physical Exam General Appearance: Yes: Appropriately Dressed, Apparent Distress, Moderate Distress, Obese HEENT: positive: Normal ENT Inspection, Normal Voice, Symmetrical, Pharynx Normal, Hearing Grossly Normal Neck: positive: Trachea midline, Normal Thyroid, Supple. negative: Carotid bruit, Decreased range of motion Respiratory/Chest: positive: Lungs Clear, Normal Breath Sounds. negative: Chest Tender, Respiratory Distress, Accessory Muscle Use, Crackles, Rales, Wheezing Cardiovascular: positive: Regular Rhythm, Regular Rate, S1, S2. negative: Edema , JVD, Murmur Vascular Pulses: Dorsalis-Pedis (R): 2+, Doralis-Pedis (L): 2+ Gastrointestinal/Abdominal: positive: Normal Bowel Sounds, Soft. negative: Guarding, Rebound, Tenderness Rectal Exam: positive: deferred Musculoskeletal: negative: CVA Tenderness Extremity: positive: Normal Capillary Refill, Tender (right knee tenderness ), Swelling. negative: Pedal Edema, Calf Tenderness Integumentary: positive: Normal Color, Dry, Warm. negative: Mottled, Rash, Ecchymosis Neurologic: positive: Fully Oriented, Alert, Normal Mood/Affect, Normal Response , Motor Strength 5/5, Respond to painful stimul, Responsive Moderate Sedation - Procedure Monitoring Vital Signs: Procedure Monitoring Vital Signs Temperature 97.5 F L 03/27/18 21:15 Pulse Rate 83 03/27/18 21:15 Respiratory Rate 18 03/27/18 21:15 Blood Pressure 130/75 03/27/18 21:15 O2 Sat by Pulse Oximetry (%) 97 03/27/18 21:15 *DC/Admit/Observation/Transfer Diagnosis at time of Disposition: Knee pain, acute, Knee pain, right - Discharge Dispostion Disposition: HOME Condition at time of disposition: Stable - Prescriptions Prescriptions: Cane 1 each MC ASDIR #1 each Ibuprofen 800 mg PO TID PRN #21 tablet PRN Reason: Pain Level 6-10 - Referrals Referrals: Stefan Agarwal MD [Primary Care Provider] - Marvel Cleveland DO [Staff Physician] - 1 week (Please call in advance to make an appointment. ) - Patient Instructions Printed Discharge Instructions: DI for Acute Pain -- Adult Additional Instructions: You came in for right sided knee pain. We did an x-ray of your knee and found no fractures. we did see chronic degenerative changes. We recommend following-up with an MRI of your right knee. Please follow up with the Orthopedic Surgeon after having the MRI SANDIP. Please follow up with your Primary Care Physician within 1 week. Please return to the ED if you are having worsening knee pain, numbness/ tingling of you right leg or any other concerning symptoms. - Post Discharge Activity
[2018-03-27] MEDS ORDERED: IBUPROFEN 400 MG TABLET (FP) PO ONE ×2 (22:38→22:48)
--- NOTE | 2018-03-27 22:40 | PDOC ---
Attending Attestation - HPI HPI: 03/27/18 22:56 The patient is a 52 year old Danish-speaking female, with a significant past medical history of subclinical Fitz's Thyroiditis, RA, and HTN, who presents to the emergency department with, right knee pain. As per patients daughter at bedside translating, the patient was playing with a hoolahoop 3 days ago when she felt her knee go inward. She notes the patient went to a [employer] and danced throughout the night beside the injury and the next day she began to experience a tracking pain. Patient is able to ambulate with the assistance of her daughter. She denies recent fevers, chills, headache or dizziness. She denies recent nausea, vomit, diarrhea or constipation. She denies recent dysuria, frequency, urgency or hematuria. She denies recent chest pain or shortness of breath. Allergies: NKDA Primary Care Physician: Dr. Agarwal <Alma Woo - Last Filed: 03/27/18 22:56> - Resident Resident Name: Duarte Santa - ED Attending Attestation I have performed the following: I have examined & evaluated the patient, The case was reviewed & discussed with the resident, I agree w/resident's findings & plan, Exceptions are as noted - Physicial Exam PE: 03/28/18 00:21 Agree with exam as documented by resident - Medical Decision Making 03/28/18 00:21 52F with traumatic px to the knee, persistent symptoms with antalgic gait, likely soft tissue injury, tear vs sprain, strain analgesia r/o fx <Onesimo Tony - Last Filed: 03/28/18 00:22> Attestations - Attestations 03/27/18 22:56 Documentation prepared by Alma Woo, acting as electromedical service engineer for Onesimo Tony MD. <Alma Woo - Last Filed: 03/27/18 22:56>
== END 2018-03-28 00:21 | disposition home or self-care (01) ==
LOC: JER 21:13
DX: M25.561 Pain in right knee (principal); I10 Essential (primary) hypertension; E06.3 Autoimmune thyroiditis; M06.9 Rheumatoid arthritis, unspecified; H81.09 Meniere's disease, unspecified ear; Z86.010 Personal history of colon polyps
CPT/HCPCS: 73560-TC-RT-FY; 99282-25

== ENCOUNTER 2018-07-05 09:52 | Emergency (ER) | payer BC, OTHER ==
[2018-07-05 10:01] VITALS: TEMP 98.8; BMI 38.2
--- NOTE | 2018-07-05 10:19 | PDOC ---
History of Present Illness - General Chief Complaint: Blood Pressure Problem Stated Complaint: HIGH BLOOD PRESSURE, DRY COUGH, SOB Time Seen by Provider: 07/05/18 09:54 History Source: Patient Exam Limitations: No Limitations - History of Present Illness Initial Comments: 07/05/18 10:15 52y F hx of htn (off meds b/c bp normalized), thyroid disease (being monitored, no current meds) presents with complaint of 'hypertension' and sob. Pt notes that for the past few days, she has felt difficulty breathing that seems worse when she is exerting herself. She feels a sensation of difficulty breathing and wanting to clear her throat - denies any megan cough, fever/chills, chest pain, orthpnea,hemoptysis. She also notse that her BP has been elevated the past few days to 190s sbp this morning - notse her BP had improved the past 2 years and she was taken off her bp meds by her PMD. She also endorses leg swelling the past few days, but had improved today. Pt has beeen going to the gym the past 6 months without problems - but yesterday felt sob so only was able to do 30 minutes of working out. denies any back pain, abd pain, recent URI, nasal congestion body aches, sore throat no recent surguries, travel known sick contacts PMD: Dr. Agarwal Card: Dr. Ch Past History - Past Medical History Allergies/Adverse Reactions: Allergies Allergy/AdvReac Type Severity Reaction Status Date / Time No Known Drug Allergies Allergy Verified 07/05/18 09:55 passion fruit Allergy Rash Verified 07/05/18 09:55 Home Medications: Ambulatory Orders NK [No Known Home Medication] 07/05/18 COPD: No HTN: Yes (NOT ON MEDS NOW) Psychiatric Problems: (possible anxiety) Thyroid Disease: Yes (subclinical Fitz's Thyroiditis ) - Surgical History Abdominal Surgery: Yes (HERNIA) Appendectomy: Yes Cholecystectomy: Yes - Immunization History Td Vaccination: Yes Immunization Up to Date: Yes - Suicide/Smoking/Psychosocial Hx Smoking Status: No Smoking History: Never smoked Have you smoked in the past 12 months: No Number of Cigarettes Smoked Daily: 0 Information on smoking cessation initiated: No Hx Alcohol Use: No Drug/Substance Use Hx: No Substance Use Type: None Review of Systems - Review of Systems Able to Perform ROS?: Yes Comments:: 07/05/18 10:19 Constitutional - no reported Fever, Chills, HEENT: no reported vision changes, sore throat Respiratory: +sob, no reported cough, hemoptysis Cardiac: no reported chest pain, palpitations, light headedness, leg swelling Abd/GI: no reported abd pain, nausea, vomiting, blood per rectum, melena, diarrhea : no reported dysuria, frequency, discharge Musculskelatal - no reported back pain, joint swelling skin - no reported bruising, erythema, rash neurological: no reported headache, numbness, focal weakness, tingling, ataxia, hematologic: no reported easy bruising, easy bleeding *Physical Exam - Vital Signs Last Vital Signs Temp Pulse Resp BP Pulse Ox 98.8 F 84 18 158/94 100 07/05/18 09:52 07/05/18 09:52 07/05/18 09:52 07/05/18 09:52 07/05/18 09:52 - Physical Exam Comments: 07/05/18 10:22 GENERAL: The patient is awake, alert, and fully oriented, Nontoxic - in no acute distress. HEAD: Normocephalic, atraumatic. EYES: extraocular movements intact, sclera anicteric, conjunctiva clear. ENT: Normal voice, dry mucous membranes, posterior pharynx patent without erythema/exudates NECK: Normal range of motion, supple LUNGS: Breath sounds equal, clear to auscultation bilaterally. No wheezes, no rhonchi, no rales. HEART: Regular rate and rhythm, normal S1 and S2 without murmur, rub or gallop. ABDOMEN: Soft, nontender, No guarding, no rebound. No CVA tenderness EXTREMITIES: Normal range of motion, trace edema. no calf tenderness, neg homans sign NEUROLOGICAL: No facial assymetry, Normal speech, PSYCH: Normal mood, normal affect. SKIN: Warm, Dry, normal turgor, Heart Score/ECG Review - ECG Impressions Comment:: 07/05/18 11:16 Twelve-lead EKG was performed and reviewed by me. There is normal sinus rhythm with a normal rate. Rate of 67 The axis is normal. The intervals are normal. There is normal R wave progression There are no ST or T wave abnormalities. Impression: Normal twelve-lead EKG ED Treatment Course - LABORATORY CBC & Chemistry Diagram: 07/05/18 10:20 07/05/18 10:17 - RADIOLOGY Radiology Studies Ordered: Category Date Time Status CHEST PA & LAT [RAD] Stat Radiology 07/05/18 10:11 Ordered Medical Decision Making - Medical Decision Making 07/05/18 10:22 52y F hx of htn thyroid disease but off meds presents with complaint of sob/wayne for the past 2 days without associated fever, cough, hemoptysis, or cp. exam unremarkble ddx - chf, pe, acs, mild bronchitis will ck cbc, cmp, bnp, d-dimer, cxr, ekg will reassess 07/05/18 12:27 labs unremarkable including neg trop, bnp, didimer cxr noted for some atelectasis on RLL to arrange follow-up and will return to the Emergency Department with any new, persistent or worsening symptoms. 07/05/18 14:15 trop neg x 2 pt was ambulated around the ED without any sob, cp or other complaints will dc wth supportive care at home and pmd fu pt feeling improved - suspect symptoms may be due to allregies will d with pmd and cardiology fu return precautions were discussed I discussed the physical exam findings, ancillary test results and final diagnoses with the patient. I answered all of the patient's questions. The patient was satisfied with the care received and felt comfortable with the discharge plan and treatment plan. The patient will call their primary care physician within 24 hours *DC/Admit/Observation/Transfer Diagnosis at time of Disposition: SOB (shortness of breath) - Discharge Dispostion Disposition: HOME Condition at time of disposition: Stable Decision to Admit order: No - Referrals Referrals: Stefan Agarwal MD [Primary Care Provider] - - Patient Instructions Printed Discharge Instructions: DI for Shortness of Breath Additional Instructions: Return to the emergency department immediately with ANY new, persistent or worsening symptoms including any worsening shortness of breath, chest pain or any other concerns. You MUST call and follow up with your doctor tomorrow for further evaluation of your symptoms. Results were discussed with you. Please make sure your doctor reviews the results of your emergency evaluation. Print Language: JAPANESE - Post Discharge Activity
[2018-07-05 10:39] LABS: BASO % 0.7 % (0-2.0); EOS % 2.7 % (0-4.5); HEMATOCRIT 39.8 % (32.4-45.2); HEMOGLOBIN 13.3 GM/dl (10.7-15.3); MCH 31.5 pg (25.7-33.7); MCHC 33.5 g/dl (32.0-36.0); MEAN PLT VOLUME 10.1 fl (7.5-11.1); MONO % 11.3 % (3.8-10.2); NEUT % 45.3 % (42.8-82.8); PLATELET COUNT 172 K/MM3 (134-434); RBC 4.23 M/mm3 (3.60-5.2); RDW 12.4 % (11.6-15.6)
[2018-07-05 10:44] LABS: INR 1.06 (0.82-1.09); PROTHROMBIN TIME (PATIENT) 11.9 SEC (10.2-13.0)
[2018-07-05 10:48] LABS: ALBUMIN 4.5 g/dl (3.4-5.0); ALK PHOS 71 U/L (45-117); ANION GAP 9 MMOL/L (8-16); BILIRUBIN,TOTAL 1.4 mg/dl (0.2-1); BLOOD UREA NITROGEN 8 mg/dl (7-18); CALCIUM 9.5 mg/dl (8.5-10); CHLORIDE 104 mmol/L (98-107); CO2 25 mmol/L (21-32); CREATININE 0.7 mg/dl (0.55-1.3); GLUCOSE,RANDOM 91 mg/dl (74-106); POTASSIUM 3.4 mmol/L (3.5-5.1); SGOT/AST 39 U/L (15-37); SGPT/ALT 34 U/L (13-61); SODIUM 138 mmol/L (136-145)
[2018-07-05 12:10] LABS: N-TERMINAL BNP 96.8 pg/ml (5-125)
[2018-07-05 14:02] VITALS: BP 132/74; PULSE 61
--- NOTE | 2018-07-07 10:41 | EKG ---
Test Reason : Blood Pressure : / mmHG Vent. Rate : 067 BPM Atrial Rate : 067 BPM P-R Int : 176 ms QRS Dur : 092 ms QT Int : 434 ms P-R-T Axes : 034 040 037 degrees QTc Int : 458 ms NORMAL SINUS RHYTHM NORMAL ECG WHEN COMPARED WITH ECG OF 10-MAY-2017 08:46, NO SIGNIFICANT CHANGE WAS FOUND Confirmed by MARY KAY FLORES MD ([id number]) on 07/07/2018 10:41:19 AM Referred By: ADAM Confirmed By:MARY KAY FLORES MD
== END 2018-07-05 14:30 | disposition home or self-care (01) ==
LOC: FER 09:52
DX: R06.02 Shortness of breath (principal); E07.9 Disorder of thyroid, unspecified
CPT/HCPCS: 36415; 71046-TC-FY; 80053; 81003; 82550; 82553; 83880; 84484; 85025; 85379; 85610; 93005; 99285-25

== ENCOUNTER 2018-11-28 09:31 | Day surgery (SDC) | payer BC ==
[2018-11-27 14:38] VITALS: BMI 40.1
[2018-11-28 12:39] VITALS: TEMP 98.6
[2018-11-28 13:23] VITALS: BP 120/74; PULSE 68
--- NOTE | 2018-12-03 11:02 | PATH ---
Surgical Pathology Report Patient Name: KAYLAN NAVA [facility]. Rec. #: [id number] /Age/Gender: 1965 (Age: 52) / F Account: [id number] Location: U-ENDOSCOPY Taken: 11/28/2018 Received: 11/28/2018 Reported: 12/03/2018 Physicians: Dali Keenan M.D. Specimen(s) Received A: BULB AND 2ND PORTION OF DUODENUM B: ANTRUM BX C: PROMIXAL TRANSVERSE COLON POLYP BX Clinical History History of adenomatous polyps, dyspepsia, rule out celiac disease Final Diagnosis A. SECOND PORTION DUODENUM AND BULB, BIOPSY: DUODENUM MUCOSA WITH NO SIGNIFICANT PATHOLOGIC CHANGE. NO HISTOLOGIC EVIDENCE OF CELIAC DISEASE. B. ANTRUM, BIOPSY: GASTRIC MUCOSA WITH CHRONIC GASTRITIS. REACTIVE GASTROPATHY PRESENT. IMMUNOSTAIN FOR H. PYLORI IS NEGATIVE. NEGATIVE FOR INTESTINAL METAPLASIA. C. PROXIMAL TRANSVERSE COLON POLYP, POLYPECTOMY: TUBULAR ADENOMA. Electronically Signed Paulina Huang M.D. Gross Description A. Received in formalin, labeled "second portion duodenum and bulb" are 7 adkins, irregular portions of soft tissue measuring 0.3 to 0.4cm. in greatest dimension. The specimens are submitted in toto in one cassette. B. Received in formalin, labeled "antrum" are 3 adkins, irregular portion of soft tissue measuring 0.1-0.3 cm. in greatest dimension. The specimens are submitted in toto in one cassette. C. Received in formalin, labeled "proximal transverse colon polyp" are 3 adkins, irregular portions of soft tissue measuring 0.2 to 0.3 cm. in greatest dimension. The specimens are submitted in toto in one cassette. __ KWS/12/01/2018 micheal/12/01/2018
== END 2018-11-28 13:44 | disposition home or self-care (01) ==
LOC: JASU-ENDO 09:31
PROVIDERS: ATTEND Internal Medicine Gastroenterology
PROC: 0DBL8ZX Excision of Transverse Colon, Via Natural or Artificial Opening Endoscopic, Diagnostic (ICD-10-PCS; 2018-11-28)
PROC: 0DB68ZX Excision of Stomach, Via Natural or Artificial Opening Endoscopic, Diagnostic (ICD-10-PCS; principal; 2018-11-28 10:15)
DX: Z12.11 Encounter for screening for malignant neoplasm of colon (principal); Z86.010 Personal history of colon polyps; K21.9 Gastro-esophageal reflux disease without esophagitis; K44.9 Diaphragmatic hernia without obstruction or gangrene; D12.3 Benign neoplasm of transverse colon
CPT/HCPCS: 88305-TC; 88342-TC

== ENCOUNTER → 2018-12-10 | Day surgery (SDC) | payer BC ==
--- NOTE | 2018-12-15 14:59 | PATH ---
Cytology Non-Gynecological Report Patient Name: KAYLAN NAVA [facility]. Rec. #: [id number] /Age/Gender: 1965 (Age: 53) / F Account: [id number] Location: RADIOLOGY INTER Taken: 12/10/2018 Received: 12/10/2018 Reported: 12/15/2018 Physicians: Anders Beasley M.D. Specimen(s) Received RIGHT LOBE THYROID FNA Clinical History Right thyroid nodule Final Diagnosis THYROID, RIGHT, FINE NEEDLE ASPIRATION: SATISFACTORY FOR EVALUATION. BETHESDA III: ATYPIA OF UNDETERMINED SIGNIFICANCE. CLUSTERS OF ATYPICAL FOLLICULAR CELLS WITH NUCLEAR ENLARGEMENT, SUBTLE NUCLEAR GROOVES, AND FOCAL CROWDING. Electronically Signed Paulina Huang M.D. Gross Description Received are eight direct smears, four of which are air-dried and Diff-Quik stained, and four of which are alcohol fixed and Pap stained. Also received is 20 ml of bloody formalin from which one cellblock is prepared.
== END | disposition home or self-care (01) ==
LOC: JRADIR 08:40
PROVIDERS: ATTEND Internal Medicine Endocrinology, Diabetes & Metabolism
PROC: 0G9H3ZX Drainage of Right Thyroid Gland Lobe, Percutaneous Approach, Diagnostic (ICD-10-PCS; principal; 2018-12-10)
DX: E04.1 Nontoxic single thyroid nodule (principal)
CPT/HCPCS: 76942; 88173; 88305-TC